=== PATIENT | female | born 1960 | race Caucasian/White ===

== ENCOUNTER → 2020-05-04 09:22 | Outpatient (BNVA) | payer OTHER, SELFPAY | PROVIDERS: Family Provider Family Medicine; Visit Provider Dermatology | DX: D23.9 Other benign neoplasm of skin, unspecified (principal); L82.0 Inflamed seborrheic keratosis; Z12.83 Encounter for screening for malignant neoplasm of skin | CPT/HCPCS: 17000; 17003; 99203 ==

== ENCOUNTER → 2020-05-24 13:10 | Outpatient (BNVA) | payer OTHER, SELFPAY | PROVIDERS: Family Provider Family Medicine; Referring Provider Dermatology; Visit Provider Dermatology | DX: D48.9 Neoplasm of uncertain behavior, unspecified (principal) | CPT/HCPCS: 11102; 11104; 88304; 88305 ==

== ENCOUNTER 2020-06-26 10:59 | Outpatient (CLI) | payer OTHER, SELFPAY ==
--- NOTE | 2020-06-26 11:27 | MM_ITS ---
WS: [id number] BILATERAL DIGITAL SCREENING MAMMOGRAPHY WITH CAD CLINICAL INFORMATION: SCREENING HISTORY: Screening mammogram. No current complaints. COMPARISON: TECHNIQUE: Bilateral CC and MLO views. FINDINGS: The breasts are composed of heterogeneous fibroglandular density tissue, which can limit the detectio n of small underlying mass lesions. No suspicious mass, asymmetry, calcifications, or architectural d istortion. No evidence of malignancy. MM/[place] [id number] IMPRESSION: BI-RADS: 1-Negative FOLLOW UP: 1 Year Follow-up Recommend return to annual screening mammography.
== END 2020-06-26 11:00 | disposition home or self-care (01) ==
LOC: RADSHAW 11:03
PROVIDERS: PCP Family Medicine; Visit Provider Family Medicine
DX: Z12.31 Encounter for screening mammogram for malignant neoplasm of breast (principal)
CPT/HCPCS: 77067

== ENCOUNTER → 2022-07-05 08:25 | Outpatient (BNVA) | payer BC, SELFPAY | PROVIDERS: PCP Family Medicine; Visit Provider Family Medicine | DX: Z00.00 Encounter for general adult medical examination without abnormal findings (principal); E03.9 Hypothyroidism, unspecified | CPT/HCPCS: 80053; 80061; 84439; 84443; 84481 ==

== ENCOUNTER → 2022-07-11 12:18 | Outpatient (BNVA) | payer BC, SELFPAY | PROVIDERS: PCP Family Medicine; Visit Provider Family Medicine | DX: R21 Rash and other nonspecific skin eruption (principal); Z00.00 Encounter for general adult medical examination without abnormal findings | CPT/HCPCS: 86003 ==

== ENCOUNTER 2022-08-14 09:50 | Outpatient (CLI) | payer BC, SELFPAY ==
--- NOTE | 2022-08-14 10:06 | MM_ITS ---
WS: [id number] BILATERAL SCREENING DIGITAL TOMOSYNTHESIS MAMMOGRAM WITH CAD HISTORY: SCREENING COMPARISON: 06/26/2020, 04/27/2018 Bilateral CC and MLO views with tomosynthesis and synthetic mammography submitted. Computer aided det ection analyzed. Breast composition: There are scattered areas of fibroglandular density. No suspicious masses, microc alcifications or architectural distortion. MM/[place] [id number] IMPRESSION: BI-RADS: 1-Negative FOLLOW UP: 1 Year Follow-up
== END 2022-08-14 09:51 | disposition home or self-care (01) ==
LOC: RAD 09:54
PROVIDERS: PCP Family Medicine; Visit Provider Family Medicine
DX: Z12.31 Encounter for screening mammogram for malignant neoplasm of breast (principal)
CPT/HCPCS: 77063; 77067

== ENCOUNTER 2023-02-19 09:18 | Outpatient (CLI) | payer BC, SELFPAY ==
--- NOTE | 2023-02-19 09:25 | MM_ITS ---
WS: [id number] ADDITIONAL VIEWS LEFT MAMMOGRAM with tomosynthesis. LEFT BREAST ULTRASOUND HISTORY: LT NIPPLE DISCHARGE COMPARISON: 08/14/2022, 06/26/2020 LEFT MAMMOGRAM: Spot compression views and true ML with tomosynthesis and sympathetic mammography. Normal appearance of the LEFT breast. No nipple retraction. No dilated ducts or mass posterior to the nipple. No skin thickening. Similar appearance as on the prior studies. LEFT BREAST ULTRASOUND 2-D and color Doppler imaging submitted. Ultrasound directed to the LEFT breast areolar region. No mass identified. No duct dilatation. No int raluminal filling defect or papilloma. MM/[id number] IMPRESSION: BI-RADS: 2-Benign FOLLOW UP: See Report 1. No explanation for the patient's LEFT nipple discharge by mammography or ul trasound. 2. Return to annual screening mammography. Screening exam August 2023.
== END 2023-02-19 09:19 | disposition home or self-care (01) ==
PROVIDERS: PCP Family Medicine; Visit Provider Family Medicine
DX: N64.52 Nipple discharge (principal)
CPT/HCPCS: 76642; 77061; G0279

== ENCOUNTER 2023-09-15 10:51 | Outpatient (CLI) | payer BC, SELFPAY ==
--- NOTE | 2023-09-15 10:56 | US_ITS ---
WS: [id number] DIAGNOSTIC BILATERAL DIGITAL BREAST TOMOSYNTHESIS MAMMOGRAPHY WITH CAD LEFT breast ultrasound, limited HISTORY: abnormal mammo, history of LEFT nipple discharge. No discharge since the prior study from . COMPARISON: 02/19/2023 and 08/14/2022 TECHNIQUE: Bilateral craniocaudad, mediolateral oblique, and mediolateral views are submitted with to mosynthesis and SM. Spot compression LEFT CC. Computer aided detection utilized. Breast composition: There are scattered areas of fibroglandular density. No suspicious masses or calc ifications. No nipple retraction. No dilated ducts. LEFT breast ultrasound, limited. Ultrasound directed to the LEFT subareolar location. No soft tissue mass. No significant duct dilatat ion. No intraductal mass IMPRESSION: US/US breast LT limited* [id number] BI-RADS: 2-Benign FOLLOW UP: 1 Year Follow-up
--- NOTE | 2023-09-15 11:00 | MM_ITS ---
WS: [id number] DIAGNOSTIC BILATERAL DIGITAL BREAST TOMOSYNTHESIS MAMMOGRAPHY WITH CAD LEFT breast ultrasound, limited HISTORY: abnormal mammo, history of LEFT nipple discharge. No discharge since the prior study from . COMPARISON: 02/19/2023 and 08/14/2022 TECHNIQUE: Bilateral craniocaudad, mediolateral oblique, and mediolateral views are submitted with to mosynthesis and SM. Spot compression LEFT CC. Computer aided detection utilized. Breast composition: There are scattered areas of fibroglandular density. No suspicious masses or calc ifications. No nipple retraction. No dilated ducts. LEFT breast ultrasound, limited. Ultrasound directed to the LEFT subareolar location. No soft tissue mass. No significant duct dilatat ion. No intraductal mass IMPRESSION: MM/[place] [id number] BI-RADS: 2-Benign FOLLOW UP: 1 Year Follow-up
== END 2023-09-15 10:52 | disposition home or self-care (01) ==
LOC: RAD 10:52
PROVIDERS: PCP Family Medicine; Visit Provider Family Medicine
DX: R92.8 Other abnormal and inconclusive findings on diagnostic imaging of breast (principal)
CPT/HCPCS: 76642; 77062; G0279

== ENCOUNTER → 2024-04-01 15:59 | Outpatient (BNVA) | payer BC, SELFPAY | PROVIDERS: PCP Family Medicine; Visit Provider Nurse Practitioner | DX: J02.9 Acute pharyngitis, unspecified (principal) | CPT/HCPCS: 87880 ==

== ENCOUNTER 2024-06-05 15:17 | Emergency (ER) | payer BC, SELFPAY ==
[2024-06-05] VITALS (7 sets, daily range): BP systolic 139–169; BP diastolic 77–95; PULSE 62–72; RESP 15–17; TEMP 36.7; O2SAT 96–100; BMI 29.7
--- NOTE | 2024-06-05 15:32 | W.ED.CHESTPA ---
HPI - Chest Pain General: Chief Complaint: Chest Pain Stated Complaint: chest pain, jaw pain, Time Seen by Provider: 06/05/24 15:31 History of Present Illness: 63-year-old female who presents for chest discomfort which she describes as a sensation of someone sitting on her chest associated with aching in the left side of her jaw and diaphoresis. This occurred while she was walking around at a flea market. She had been out in the heat for a short period of time. When she went inside and rested, her symptoms resolved. She denies associated nausea or shortness of breath. She denies a prior cardiac history. She does have a history of hyperlipidemia and a family history of cardiac disease in her mother at a similar age. She has not had a prior cardiac workup. She states at its worst, the pain was 3 out of 10. Currently her pain is gone completely. Risk Factors: Coronary artery disease risk factors: hyperlipidemia Related Data Home Medications Medication Instructions Recorded Confirmed aspirin 81 mg tablet,delayed 81 mg PO DAILY 05/04/20 04/01/24 release (Adult Low Dose Aspirin) multivitamin (Daily Multi-Vitamin 1 tab PO DAILY 05/04/20 04/01/24 tablet) zinc acetate 50 mg (zinc) capsule 50 mg PO DAILY 05/04/20 04/01/24 (Galzin) Previous Rx's Medication Instructions Recorded epinephrine 0.3 mg/0.3 mL 0.3 mg (0.3 mL) IM Q4H PRN 07/19/22 injection, auto-injector (EpiPen anaphylaxis #2 ea 2-Kye) levothyroxine 125 mcg tablet 125 mcg PO DAILY #90 tabs 07/07/23 atorvastatin 10 mg tablet See Rx Instructions .Route 10/29/23 .COMPLEX #90 tabs azithromycin 500 mg tablet 500 mg PO DAILY 5 days #5 tabs 04/01/24 Allergies Allergy/AdvReac Type Severity Reaction Status Date / Time hydrocodone Allergy itch Verified 04/01/24 15:43 penicillin G Allergy Severe rash Verified 04/01/24 15:43 Review of Systems General: Reports: 10 or more systems reviewed and unremarkable except in HPI and below PFSH ED PFSH: Family History Father Melanoma Social History Smoking and tobacco/nicotine status: never used tobacco/nicotine Alcohol intake: never Physical Exam Const: COMMON NORMALS: patient oriented x3 GENERAL APPEARANCE: cooperative HENMT: COMMON NORMALS: external ears normal and Normal external nose present NOSE: Normal external nose present and Normal nares present EXTERNAL EAR: Yes external ears normal Eye: COMMON NORMALS: EOMs intact bilaterally Lymph: LYMPHATIC: no lymphadenopathy noted Resp: COMMON NORMALS: normal respiratory effort and clear to auscultation bilaterally AUSCULTATION: clear to auscultation bilaterally Cardio: COMMON NORMALS: regular rate and regular rhythm RATE: regular rate RHYTHM: regular rhythm GI: AUSCULTATION: Yes normoactive bowel sounds Neuro: COMMON NORMALS: patient oriented x3 SPEECH: speech normal GAIT: Yes Normal gait present Psych: COMMON NORMALS: cooperative and speech normal SPEECH: Yes normal speech Skin: RASHES: no rashes Course ED course: patient has had an IV placed and labs obtained. She had an EKG performed which shows no acute ischemic changes from interpretation. She had a chest x-ray which per my trepidation shows no infiltrate or effusion or other acute finding. Patient's been given 4 baby aspirin. She has been pain-free throughout her stay in the emergency department. Labs have been obtained including initial negative troponin of less than 6.. Plan for discharge home if the patient's 2-hour troponin remains negative. 2 her troponin is negative. Patient remains pain-free. The patient is wanting to go home. Discussed with the patient that she needs close follow-up with her primary care provider to get set up for an outpatient stress test. If instructed her to take a baby aspirin daily. Home to rest. Return if she has any recurrent chest pain that lasts more than 5 minutes. Follow-up this next week with her primary care provider to get set up for an outpatient stress test. Vital Signs: Vital signs: Vital Signs Temperature 98.1 F 06/05/24 15:21 Pulse Rate 62 06/05/24 17:35 Respiratory Rate 17 06/05/24 17:35 Blood Pressure 139/88 06/05/24 17:35 Pulse Oximetry 96 06/05/24 17:35 Oxygen Delivery Me thod Room Air 06/05/24 15:21 MDM - Chest Pain Medical Decision Making 63-year-old female who presents with a 45-minute history of chest discomfort with associated diaphoresis. She does have risk factors including a family history and a history of hyperlipidemia. She is pain-free at this time. Will obtain an chest x-ray, EKG, serial cardiac enzymes. Will give her 4 baby aspirin. Differential diagnosis includes exertional angina, unstable angina, non-ST elevation FL, chest wall pain, gastroesophageal reflux Lab Data Patient's labs reveal mild elevation of her blood sugar at 137. Renal function is normal. White blood cell count is normal at 4.52. Initial troponin is negative at less than 6. Her lipase is normal. Her LFTs are normal. At this time, 2-hour troponin is pending. 06/05/24 15:55 06/05/24 15:55 Radiology Impressions Chest X-Ray 06/05/24 15:33 IMPRESSION: No acute findings. Laboratory Results WBC 4.52 10^3/uL (3.29-11.43) 06/05/24 15:55 RBC 4.42 10^6/uL (3.85-5.65) 06/05/24 15:55 Hgb 13.90 g/dL (11.27-16.99) 06/05/24 15:55 Hct 42.1 % (36-47) 06/05/24 15:55 MCV 95.2 fl (85-98) 06/05/24 15:55 MCH 31.4 pg (27-33) 06/05/24 15:55 MCHC 33.0 g/dL (30-55) 06/05/24 15:55 RDW 12.4 % (12.1-15.1) 06/05/24 15:55 Plt Count 230 10^3/cmm (157-399) 06/05/24 15:55 MPV 9.6 fL (7.4-10.4) 06/05/24 15:55 Neut % (Auto) 64.8 % 06/05/24 15:55 Lymph % (Auto) 25.2 % 06/05/24 15:55 Villalba % (Auto) 7.3 % 06/05/24 15:55 Eos % (Auto) 1.8 % 06/05/24 15:55 Baso % (Auto) 0.7 % 06/05/24 15:55 Neut # (Auto) 2.93 10^3/uL (1.8-7.7) 06/05/24 15:55 Lymph # (Auto) 1.1 10^3/uL (0.8-4.8) 06/05/24 15:55 Villalba # (Auto) 0.3 10^3/uL (0.2-0.9) 06/05/24 15:55 Eos # (Auto) 0.1 10^3/uL (0.0-0.8) 06/05/24 15:55 Baso # (Auto) 0.0 10^3/uL (0.0-0.1) 06/05/24 15:55 Nucleated RBC % (auto) 0 % 06/05/24 15:55 Nucleated RBCs # 0.0 /100WBC 06/05/24 15:55 Sodium 138 mmol/L (136-145) 06/05/24 15:55 Potassium 4.1 mmol/L (3.5-5.1) 06/05/24 15:55 Chloride 101 mmol/L (98-107) 06/05/24 15:55 Carbon Dioxide 27 mmol/L (22-29) 06/05/24 15:55 Anion Gap 14.1 (5-19) 06/05/24 15:55 BUN 17 mg/dL (8-23) 06/05/24 15:55 Creatinine 0.6 mg/dL (0.5-0.9) 06/05/24 15:55 GFR Calculation 101.6 mL/min (90-130) 06/05/24 15:55 Glucose 137 mg/dL (65-115) H 06/05/24 15:55 Calculated Osmolality 290 mOsm/kg (285-295) 06/05/24 15:55 Calcium 8.7 mg/dL (8.5-10.5) 06/05/24 15:55 Total Bilirubin 0.2 mg/dL (0.15-1.2) 06/05/24 15:55 AST 23 U/L (0-32) 06/05/24 15:55 ALT 25 U/L (0-33) 06/05/24 15:55 Alkaline Phosphatase 124 U/L (35-105) H 06/05/24 15:55 Troponin T Baseline < 6 ng/L (0-10) 06/05/24 15:55 Troponin T 120 Minute 6.00 ng/L (0-10) 06/05/24 17:47 Delta Troponin T 0.59805 ABS# (0-10) 06/05/24 17:47 Total Protein 6.8 g/dL (6.6-8.7) 06/05/24 15:55 Albumin 4.4 g/dL (3.5-5.2) 06/05/24 15:55 Globulin 2.4 g/dL (1.3-4.6) 06/05/24 15:55 Lipase 45 U/L (13-60) 06/05/24 15:55 All radiology interpretation(s) finalized by discharge ED provider radiology interpretation(s): Chest x-ray per my interpretation shows no infiltrate or effusion or other acute finding. EKG Data EKG 1: I personally reviewed and interpreted this EKG as follows: Interpretation: Normal sinus rhythm, no ST segment elevation, T wave inversion in V1 and V2 as well as T wave flattening in the 3 and V4. No acute ischemic changes per my interpretation. Discharge Plan Discharge Patient Disposition: Home Clinical Impression: Chest pain Condition: Stable Prescriptions: No Action aspirin [Adult Low Dose Aspirin] 81 mg tablet,delayed release (DR/EC) 81 mg PO DAILY Galzin 50 mg (zinc) capsule 50 mg PO DAILY Rx Instructions: swallow whole; do not chew/break/dissolve/open multivitamin [Daily Multi-Vitamin] Tablet 1 tab PO DAILY azithromycin 500 mg tablet 500 mg PO DAILY 5 Days Qty: 5 0RF epinephrine [EpiPen 2-Kye] 0.3 mg/0.3 mL auto-injector 0.3 mg IM Q4H PRN (Reason: anaphylaxis) Qty: 2 3RF levothyroxine 125 mcg tablet 125 mcg PO DAILY Qty: 90 3RF atorvastatin 10 mg tablet See Rx Instructions .ROUTE .COMPLEX Qty: 90 3RF Dose Instruction: TAKE 1 TABLET BY MOUTH EVERY DAY Rx Instructions: TAKE 1 TABLET BY MOUTH EVERY DAY Discharge Orders: Discharge ED (Routine); Ordered 06/05/24 Ordered By: Argelia Freedman Referrals: Cody Sharif MD [Primary Care Provider] - Discharge Diet: Advance as tolerated Discharge Activity: Limit activity as instructed Patient Instructions: Angina (DC), Chest Pain (ED), Opioid Safety, Pain Management Activity Restrictions/Additional Instructions: Continue taking an aspirin daily. Home to rest. Limit your physical activity until you have been evaluated by your primary care provider and had a stress test completed. Return to the emergency department if you have recurrent, persistent chest pain. Follow-up this week with your primary care provider Coding Level of Care Code ED Interrelated Special Education Teacher for Petr Richter
--- NOTE | 2024-06-05 15:33 | XRR_ITS ---
PROCEDURE INFORMATION: Exam: XR Chest Exam date and time: 06/05/2024 4:03 PM Age: 63 years old Clinical indication: Chest pressure; Patient HX: Chest pain; Left jaw pain TECHNIQUE: Imaging protocol: Radiologic exam of the chest. Views: 1 view. COMPARISON: No relevant prior studies available. FINDINGS: Lungs: No focal consolidation. Pleural spaces: No sizable pleural effusion. No pneumothorax. Heart/Mediastinum: Unremarkable cardiomediastinal silhouette. Bones/joints: The osseous structures are unremarkable. Soft tissues: Soft tissues are unremarkable as visualized. XR/XR chest 1V portable [id number] IMPRESSION: No acute findings.
--- NOTE | 2024-06-05 15:33 | ECG_ITS ---
[facility] Test Date: 2024-06-05 Pat Name: Lisa Rdz Department: Room: Gender: Female Chief Physical Therapist: : 1960 Requested By: Argelia Freedman Order Number: [id number] Ethan MD: Rodolfo Persaud M.D. Measurements Intervals [place] Rate: 70 P: 30 AR: 160 QRS: -17 QRSD: 95 T: 22 QT: 381 QTc: 413 Interpretive Statements SINUS RHYTHM LOW QRS VOLTAGE IN PRECORDIAL LEADS [QRS DEFLECTION < 1.0 mV IN CHEST LEADS] POSSIBLE ANTERIOR MYOCARDIAL INFARCTION , PROBABLY OLD [30 ms Q WAVE IN V3/V4, OR R < 0.2 mV IN V4] No previous ECG available for comparison Electronically Signed On 06-05-2024 16:17:57 CDT by Rodolfo Persaud M.D. [id number]
[2024-06-05] MEDS: aspirin 81 mg Chew Tablet 324 MG PO (15:52)
[2024-06-05 16:05] LABS: Basophils % 0.7 %; Eosinophils # 0.1 10^3/uL (0.0-0.8); Eosinophils % 1.8 %; Hematocrit 42.1 % (36-47); Lymphocytes # 1.1 10^3/uL (0.8-4.8); Lymphocytes % 25.2 %; Mean Corpuscular Hemoglobin 31.4 pg (27-33); Mean Corpuscular Volume 95.2 fl (85-98); Mean Platelet Volume 9.6 fL (7.4-10.4); Monocytes # 0.3 10^3/uL (0.2-0.9); Monocytes % 7.3 %; Neutrophils # 2.93 10^3/uL (1.8-7.7); Neutrophils % 64.8 %; Nucleated Red Blood Cells % 0 %; Platelet Count 230 10^3/cmm (157-399); Red Blood Count 4.42 10^6/uL (3.85-5.65); Red Cell Distribution Width 12.4 % (12.1-15.1); White Blood Count 4.52 10^3/uL (3.29-11.43)
[2024-06-05 16:25] LABS: Troponin(5th) Baseline < 6 ng/L (0-10)
[2024-06-05 16:31] LABS: Alanine Aminotransferase 25 U/L (0-33); Albumin Level 4.4 g/dL (3.5-5.2); Alkaline Phosphatase 124 U/L (35-105); Anion Gap 14.1 (5-19); Aspartate Amino Transferase 23 U/L (0-32); Blood Urea Nitrogen 17 mg/dL (8-23); Calcium 8.7 mg/dL (8.5-10.5); Carbon Dioxide 27 mmol/L (22-29); Chloride 101 mmol/L (98-107); Creatinine Clr Calc Pharmacy 111.0356; Globulin 2.4 g/dL (1.3-4.6); Glomerular Filtration Rate 101.6 mL/min (90-130); Glucose 137 mg/dL (65-115); Lipase 45 U/L (13-60); Osmolality Calculated 290 mOsm/kg (285-295); Potassium 4.1 mmol/L (3.5-5.1); Sodium 138 mmol/L (136-145); Total Bilirubin 0.2 mg/dL (0.15-1.2); Total Protein 6.8 g/dL (6.6-8.7)
--- NOTE | 2024-06-05 17:33 | ECG_ITS ---
[facility] Test Date: 2024-06-05 Pat Name: Lisa Rdz Department: Room: Gender: Female Boat Garnisher: : 1960 Requested By: Argelia Freedman Order Number: [id number] Ethan MD: Rodolfo Persaud M.D. Measurements Intervals [place] Rate: 64 P: 49 AL: 158 QRS: -7 QRSD: 98 T: 43 QT: 405 QTc: 420 Interpretive Statements SINUS RHYTHM LOW QRS VOLTAGE IN PRECORDIAL LEADS [QRS DEFLECTION < 1.0 mV IN CHEST LEADS] INCOMPLETE RIGHT BUNDLE BRANCH BLOCK [90+ ms QRS DURATION, TERMINAL R IN V1/V2, 40+ ms S IN I/aVL/V4/V5/V6] Compared to ECG 06/05/2024 15:18:36 Incomplete right bundle-branch block now present Myocardial infarct finding no longer present Electronically Signed On 06-05-2024 21:54:46 CDT by Rodolfo Persaud M.D. [id number]
[2024-06-05 18:36] LABS: Troponin 5 2HR Delta 0.00001 ABS# (0-10)
== END 2024-06-05 19:23 | disposition home or self-care (01) ==
PROVIDERS: Emergency Provider Emergency Medicine; PCP Family Medicine
DX: R07.9 Chest pain, unspecified (principal); Z79.82 Long term (current) use of aspirin
CPT/HCPCS: 36415; 71045; 80053; 83690; 84484; 85025; 93005; 99285

== ENCOUNTER → 2024-06-11 09:30 | Outpatient (BNVA) | payer BC, SELFPAY | PROVIDERS: PCP Family Medicine; Visit Provider Family Medicine | DX: E11.9 Type 2 diabetes mellitus without complications (principal); E03.9 Hypothyroidism, unspecified; E78.5 Hyperlipidemia, unspecified; R07.9 Chest pain, unspecified | CPT/HCPCS: 80048; 80061; 84443; 86140; 86160; 86162; 86235; 86255; 86376 ==

== ENCOUNTER 2024-07-09 07:59 | Outpatient (CLI) | payer BC, SELFPAY ==
--- NOTE | 2024-07-09 | ECG_ITS ---
[facility] Test Date: 2024-07-09 Pat Name: Lisa Rdz Department: Room: Gender: Female Tare Worker: : 1960 Requested By: Cody Ortiz Order Number: [id number] Ethan MD: Rodolfo Persaud M.D. Interpretive Statements Exercise sestamibi stress test EXERCISE DATA: The patient was exercised by Nii protocol. Baseline heart rate was 67 beats per minute. Baseline blood pressure was 166/94millimeters of mercury. Maximal predicted heart rate was 159 beats per minute. Maximum heart rate achieved was 141, which was 88 % of the maximum predicted heart rate. Maximum blood pressure qvw874/94 millimeters of mercury. Total exercise time was 7 minutes 41 seconds. Maximum METs achieved was 10.2. The reason for ending the test was completion of protocol. The patient complained of shortness of breath during the stress test, which then resolved at the end of the test. ELECTROCARDIOGRAM: BASELINE: Showed sinus rhythm, normal axis, no significant ST-T changes at the baseline noted. [] EXERCISE: At the peak exercise level, [] No significant ST-T changes suggestive of ischemia noted. [] RECOVERY: During the recovery period, heart rate dropped appropriately. No significant ST-T changes in the recovery suggestive of ischemia noted. [] CONCLUSION: 1. Exercise capacity is good 2. Heart rate response was appropriate. 3. Blood pressure response was appropriate. 4. Symptoms not suggestive of ischemia. 5. Electrocardiogram portion of the stress test was not suggestive of ischemia. 6. Nuclear scan will be documented separately. Electronically Signed On 07-16-2024 21:12:14 CDT by Rodolfo Persaud M.D. [email or web address]/[id number]
[2024-07-09 08:15] VITALS: BMI 29.7
--- NOTE | 2024-07-09 08:19 | NMCV_ITS ---
NM sisi perf SPECT r/s* [id number] Kendell Lisa Age: 63 Gender: F : 1960 Exam Date: 07/09/2024 08:19 Ordering Phys: Cody Sharif MD Technologist: YARI Mccracken Exam Location: [facility] Indications: CP STRESS TEST Please see separate stress test report in [employer] for full findings IMAGE PROTOCOL Rest/Stress 1 Exercise Day Radiopharmaceutical Dose (mCi) Administration Site Administered by Rest: Tc-99m 10 IV Courtney Hector CLAY CARMAN Sestamibi Stress:Tc-99m 32.8 IV Courtney Hector, CLAY CARMAN Sestamibi Rest: 09-Jul-2024 60 Discovery 630 Stress: 09-Jul-2024 15 Discovery 630 Radiopharmaceutical was injected at 85 % maximum heart rate. Images obtained in supine and prone position. SPECT RESULTS Technical Quality: Good Raw Data Analysis: Breast attenuation Image Corrections: No attenuation or motion correction applied Summed Stress Score: 3 Summed Rest Score: 5 Summed Difference Score: 0 PERFUSION FINDINGS Small area of fixed perfusion defect noted in the apical and inferoapical wall of the left ventricular suggestive of old myocardial infarction versus artifact FUNCTIONAL RESULTS (calculated via Gated SPECT) Stress Image LV EF (%): 83 Stress EDV (mL):64 TID: 0.78 Stress ESV (mL):11 FUNCTIONAL FINDINGS: There is normal left ventricular systolic function. IMPRESSIONS Small area of fixed perfusion defect noted in the apex and inferior apical wall suggestive of old myocardial infarction versus artifact in the absence of wall motion abnormality. This study is negative for ischemia. Ignacio Cruz MD (Electronically Signed) Final Date: 09 July 2024 20:50 S
[2024-07-09 10:28] VITALS: BP 138/62; PULSE 77
== END 2024-07-09 08:00 | disposition home or self-care (01) ==
PROVIDERS: PCP Family Medicine; Visit Provider Family Medicine
DX: R07.9 Chest pain, unspecified (principal); R06.02 Shortness of breath
CPT/HCPCS: 36415; 78452; 93017; A9500

== ENCOUNTER → 2024-08-25 09:14 | Outpatient (BNVA) | payer BC, SELFPAY | PROVIDERS: PCP Family Medicine; Visit Provider Podiatrist Foot & Ankle Surgery | DX: M79.671 Pain in right foot (principal); G57.61 Lesion of plantar nerve, right lower limb; M20.21 Hallux rigidus, right foot | CPT/HCPCS: 73630 ==

== ENCOUNTER → 2024-11-03 07:57 | Outpatient (BNVA) | payer BC, SELFPAY | PROVIDERS: PCP Family Medicine; Visit Provider Family Medicine | DX: E11.9 Type 2 diabetes mellitus without complications (principal); E03.9 Hypothyroidism, unspecified; E78.5 Hyperlipidemia, unspecified | CPT/HCPCS: 84443 ==

== ENCOUNTER → 2024-11-08 13:42 | Outpatient (BNVA) | payer BC, SELFPAY | PROVIDERS: PCP Family Medicine; Visit Provider Family Medicine | DX: R51.9 Headache, unspecified (principal) | CPT/HCPCS: 86003; 86008 ==

== ENCOUNTER → 2025-07-06 07:49 | Outpatient (BNVA) | payer BC, SELFPAY | PROVIDERS: PCP Family Medicine; Visit Provider Family Medicine | DX: E78.5 Hyperlipidemia, unspecified (principal); E03.9 Hypothyroidism, unspecified | CPT/HCPCS: 80053; 80061; 84443; 85025; 86140 ==

== ENCOUNTER 2025-07-11 14:26 | Outpatient (CLI) | payer BC, SELFPAY ==
--- NOTE | 2025-07-11 14:30 | XR_ITS ---
WS: [id number] Left knee, 3 views, 07/11/2025 Clinical Data: knee swelling Comparison: None. Findings: No fractures or dislocations are seen. There is minimal narrowing of the medial joint compartment with a spur of the medial femoral condyle. The patella is intact. The soft tissues are unremarkable. 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
== END 2025-07-11 14:27 | disposition home or self-care (01) ==
LOC: RAD 14:27
PROVIDERS: PCP Family Medicine; Visit Provider Family Medicine
DX: M25.462 Effusion, left knee (principal); M17.12 Unilateral primary osteoarthritis, left knee
CPT/HCPCS: 73562

== ENCOUNTER 2025-07-18 08:09 | Outpatient (CLI) | payer BC, SELFPAY ==
--- NOTE | 2025-07-18 08:20 | MM_ITS ---
WS: [id number] BILATERAL SCREENING DIGITAL TOMOSYNTHESIS MAMMOGRAM WITH CAD HISTORY: screening COMPARISON: 09/15/2023, 02/19/2023, 08/14/2022 Bilateral CC and MLO views with tomosynthesis and synthetic mammography submitted. Computer aided detection analyzed. Breast composition: There are scattered areas of fibroglandular density. No suspicious masses, microcalcifications or architectural distortion. MM/MM scr BI tomosynthesis [id number] IMPRESSION: BI-RADS: 1 - Negative. FOLLOW UP: 1 Year Follow-up
== END 2025-07-18 08:10 | disposition home or self-care (01) ==
LOC: RAD 08:10
PROVIDERS: PCP Family Medicine; Visit Provider Family Medicine
DX: Z12.31 Encounter for screening mammogram for malignant neoplasm of breast (principal); R92.323 Mammographic fibroglandular density, bilateral breasts
CPT/HCPCS: 77063; 77067

== ENCOUNTER 2025-07-29 13:53 | Outpatient (CLI) | payer BC, SELFPAY ==
--- NOTE | 2025-07-29 14:00 | USR_ITS ---
PROCEDURE INFORMATION: Exam: US Soft Tissue Head and Neck, Thyroid Exam date and time: 07/29/2025 2:26 PM Age: 64 years old Clinical indication: Condition or disease; Thyroid disorder; Other: Nodule; Additional info: HX of thyroid nodule. Mass below the thyroid TECHNIQUE: Imaging protocol: Real-time ultrasound scan of the neck with image documentation. Exam focused on the thyroid. COMPARISON: No relevant prior studies available. FINDINGS: Right thyroid lobe: Status post thyroidectomy. Along the right surgical bed there is a 1.2 x 1.5 x 3.1 cm masslike structure which appears mildly heterogeneous. Left thyroid lobe: Status post thyroidectomy. Unremarkable surgical bed. Isthmus: No nodules. Soft tissues: Images acquired along the left clavicle at the area of patient concern demonstrate normal-appearing subcutaneous soft tissues without discrete mass or cystic collection. Images of the contralateral side for comparison are also unremarkable. US/US thyroid [id number] IMPRESSION: 1. Patient reportedly status post thyroidectomy with a masslike structure in the right thyroid fossa which could represent remnant thyroid tissue, an enlarged lymph node, or less likely parathyroid tissue. Correlate with clinical and surgical history, particularly if the right thyroid was not fully removed. Recommend fine-needle aspiration for pathologic correlation if there is clinical concern. 2. Bilateral supraclavicular fossae are unremarkable.
== END 2025-07-29 13:54 | disposition home or self-care (01) ==
PROVIDERS: PCP Family Medicine; Visit Provider Family Medicine
DX: E04.1 Nontoxic single thyroid nodule (principal); E03.9 Hypothyroidism, unspecified; R93.89 Abnormal findings on diagnostic imaging of other specified body structures
CPT/HCPCS: 76536

== ENCOUNTER 2025-08-08 07:03 | Outpatient (CLI) | payer BC, SELFPAY ==
--- NOTE | 2025-08-08 07:15 | MR_ITS ---
WS: [id number] MRI LEFT KNEE HISTORY: knee pain/ swelling COMPARISON: 07/11/2025 Anterior cruciate ligament: Intact. Posterior cruciate ligament: Intact. Medial collateral ligament: Intact. Posterior lateral corner structures: Fluid around the fibular ligament and the popliteus tendon but no tear is identified. Medial menisci: No tear identified. Fraying along the articular surfaces. No significant blunting of the free edges. Lateral meniscus: Intrasubstance degeneration in the posterior horn towards the meniscal root. Tiny focus of increased T2 signal in the posterior horn does not extend through the meniscus. Extensor mechanism: Distal quadriceps tendon and patellar tendons are intact. Fluid and soft tissue: Large suprapatellar joint effusion. Effusion is slightly heterogeneous. Large lobulated Gallego's cyst. Gallego's cyst is septated. There is a small amount of fluid along the medial head of the gastrocnemius muscle. Additional varicosities are noted along the medial knee. Increased T2 signal extending into the infrapatellar fat pad just below the patella. Osseous and articular structures: Patellofemoral compartment: Normal position of the patella. Mild chondromalacia along the medial patellar facet. Medial compartment: Moderate narrowing the medial compartment. Mild thinning and fissuring of the cartilage. Marrow edema in the medial tibial plateau. Lateral compartment: Mild narrowing of the lateral compartment. Moderate chondromalacia in the mid tibial plateau but no full-thickness defect. No underlying marrow edema in the cartilage. There is a small amount of marrow edema at the base of the tibial spines. MR/MR knee LT wo con* [id number] IMPRESSION: 1. Large suprapatellar joint effusion. 2. Large Gallego's cyst. Partial rupture of the Gallego's cyst. There is fluid ext ending along the medial head of the gastrocnemius. 3. Intrasubstance degeneration in the posterior horn of the lateral meniscus b ut no tear identified. 4. Mild surface fraying of the meniscus in the medial compartment. 5. Mild chondromalacia involving the medial patellar facet. 6. Moderate narrowing the medial compartment with thinning and fissuring of th e cartilage. 7. Marrow edema and large portion of the medial tibial plateau. Probably react nisha from arthritis. 8. Mild narrowing lateral compartment with moderate chondromalacia along the t ibial plateau. 9. Small amount of fluid in the infrapatellar fat pad.
== END 2025-08-08 07:04 | disposition home or self-care (01) ==
PROVIDERS: PCP Family Medicine; Visit Provider Family Medicine
DX: M25.462 Effusion, left knee (principal); M71.22 Synovial cyst of popliteal space [Baker], left knee; S86.812A Strain of other muscle(s) and tendon(s) at lower leg level, left leg, initial encounter; R93.6 Abnormal findings on diagnostic imaging of limbs; M94.262 Chondromalacia, left knee; R60.0 Localized edema; X58.XXXA Exposure to other specified factors, initial encounter
CPT/HCPCS: 73721

== ENCOUNTER → 2025-08-31 12:03 | Outpatient (BNVA) | payer BC, SELFPAY | PROVIDERS: PCP Family Medicine; Visit Provider Family Medicine | DX: E03.9 Hypothyroidism, unspecified (principal) | CPT/HCPCS: 84439; 84443 ==